=== PATIENT | female | born 2000 | race Two or more races ===

== ENCOUNTER 2025-01-31 10:51 | Outpatient (AMB) | payer MEDICAID, SELFPAY ==
[2025-01-31 11:03] VITALS: BP 107/69; PULSE 71; RESP 18; TEMP 36.2; O2SAT 98; BMI 24.5
--- NOTE | 2025-01-31 11:03 | AMB.GYNCLNOT ---
Vital Signs 01/31/25 11:03 Height 1.6 m Height Method Stated Weight 62.709 kg Weight Measurement Method Standing Scale BMI 24.5 BP 107/69 Blood Pressure Source Automatic Cuff Blood Pressure Location Left Upper Arm Position Sitting Respiration 18 Pulse 71 Pulse Source Monitor Temp 97.2 F Temp Source Oral Pulse Oximetry (%) 98 Oxygen Delivery Method Room Air Allergies/Home Meds Allergies & Medications Allergies No Known Allergies Allergy (Verified 01/31/25 11:04) Medication Reconciliation prenat.vits,melisa,[id number] 1 tab PO QDAY 08/31/21 [History Confirmed 01/31/25] calcium phosphate,dibasic 77 mg-vitamin D3 400 unit tablet 1 tab PO QDAY 11/24/21 [History Confirmed 01/31/25] ferrous sulfate 325 mg (65 mg iron) tablet (Iron (ferrous sulfate)) 325 mg PO QDAY 11/24/21 [History Confirmed 01/31/25] acetaminophen 500 mg capsule 1,000 mg (2 x 500 mg) PO TID #30 caps 08/30/22 [Rx Confirmed 01/31/25] Intake Visit Data Collection New Patient or Established: Established Patient (seen at [facility] within 3 years) Reason for Visit:: NEW PT ENDOMETOSIS Seen by Clinical Staff ONLY (RN/MA): No Wind Energy Mechanic Required: No Do You Feel Safe at Home: Yes Authorities Contacted: N/A PCP or OBGYN visit in last 3 months: Yes Hx Now: No Are you currently on any form of Control: No Last menstrual period: 01/18/25 Pain Present Currently: No Pain Scale Used: Holloway-Bell/Numerical Pain scale:: 0 Smoking Status Smoking Status: Never smoker Immunizations Flu Vaccine in the Last 12 Months: No Flu Vaccine Exclusion Criteria: No Exclusion Criteria 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 Menstrual regularity: regular Flow: normal Monthly: Yes Age at menarche: 12 Menopausal: No Currently sexually active: Yes 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 1. Little interest or pleasure in doing things: not at all 2. Feeling down, depressed, or hopeless: not at all Total score: 0 PHQ-9 3. Trouble falling or staying asleep, or sleeping too much: Not at all 4. Feeling tired or having little energy: Not at all 5. Poor appetite or overeating: Not at all 6. Feeling bad about yourself - or that you are a failure or have let yourself or your family down: Not at all 7. Trouble concentrating on things, such as reading the newspaper or watching television: Not at all 8. Moving or speaking so slowly that other people could have noticed? - Or the opposite - being so fidgety or restless that you have been moving around a lot more than usual: not at all 9. Thoughts that you would be better off or of hurting yourself in some way: Not at all Total score: 0 If you checked off any problems, how difficult have these problems made it for you to do your work, take care of things at home, or get along with other people?: not difficult at all Source: Developed by Drs. Feroz Burnette, Cari Randle, Talib Ibanez and colleagues, with an educational katherine from [employer]. Depression screen completed yes Social History Living Situation History Marital Status: Lives With: Family Housing: House Tobacco History Smoking Status: Never smoker Second Hand Smoke Exposure: No Alcohol History Alcohol Intake: Never Substance Use History Substance Use: thc prior to preg Domestic Abuse History Do You Feel Safe at Home: Yes History of Present Illness HPI Narrative Trying to conceive for 3 years, nausea and shakiness before periods for the last 6 months, concern about endometriosis recurrence Marcela Dubon presents for infertility evaluation after trying to conceive for approximately 3 years. She has a history of previous resulting in delivery and reports having healed well from the procedure. The patient currently uses a tracker cari to monitor her menstrual cycle but does not perform ovulation testing. She believes she ovulates based on cervical mucus changes but feels she is not fertile. Her cycles are sometimes irregular, and she experiences spotting every other month or a couple of months at a time, occurring around 2 weeks before her periods start, which happens after ovulation. Over the past 6 months, the patient has developed new symptoms including severe nausea leading up to her periods and episodes of feeling shaky. She has made dietary modifications, eliminating fast food and primarily eating home-cooked meals. The patient expresses concern about possible recurrence of endometriosis. Medical History: - Endometriosis Surgical History: - section, patient reports having healed well from the procedure Obstetric History: - GTPAL: G1 T1 L1 - Previous delivery via section with successful healing Social History: - Diet: Reports dietary changes including elimination of fast food and primarily consuming home-cooked meals Exam General General Appearance: alert, in no apparent distress and healthy appearing Head Head exam: atraumatic Neck Neck exam: Present normal inspection and trachea midline Chest Chest inspection: Present normal inspection and symmetric chest wall rise External exam: Present normal external exam; Absent tenderness Neuro Neurological exam: Present oriented X3 Psych Psychiatric exam: Present normal affect and normal mood Office Procedures [facility] Clinic LOC & Office Proc's Nursing/Assessment Patient Status: Established Patient OB Clinic Nursing Assessment: Medication Reconciliation, Update PMH in EMR and Vital Signs OB Clinic Coordination of Care: Consent,records obtained, informed consent, Education Simp Pt/Fam, Lab and Imaging orders, Results/Orders obtained and Staff clarify orders Established Patient Charge Established Patient Point Assignment: 80 Established Patient Point Charge: EP Level 3 (80-115) Assessment & Plan Diagnosis / Problem List (1) Abnormal uterine and vaginal bleeding, unspecified: Status: Acute Plan Infertility Assessment: Patient has been trying to conceive for 3 years following previous section. Currently uses tracking cari for ovulation prediction but has not validated ovulation with test kits. Reports normal ovulation spotting occurring 2 weeks before menstruation every other month. Since patient has had previous , issues like blocked tubes or cervical factors are less likely. Patient expressed concern about endometriosis recurrence, however endometriosis would not prevent . Baseline evaluation needed to assess general health and rule out cysts or fibroids, along with hormone level assessment. Plan: - Perform ovulation test kits using good brand like Clearblue for 5 consecutive days between 2-4 PM during next cycle to validate ovulation - If ovulation confirmed, time intercourse around ovulation period - If ovulation test negative, initiate Clomid to stimulate ovulation - Order baseline laboratory tests and hormone levels to be done during first two days of menstrual period - Order pelvic ultrasound (pending insurance authorization) to evaluate for cysts or fibroids - Follow-up appointment in 3 weeks for infertility evaluation - Clomid side effects discussed: ovarian stimulation, more pronounced ovulation symptoms, fluid retention, and bloating Premenstrual nausea and shakiness Assessment: New onset of severe nausea and shakiness occurring premenstrually over the past 6 months, consistent with premenstrual dysphoria symptoms. Plan: - control could help with nausea and premenstrual dysphoria but cannot be used while trying to conceive - Reassess symptoms at follow-up visit
== END 2025-01-31 11:10 | disposition home or self-care (01) ==
PROVIDERS: PCP Family Medicine; Referring Provider Family Medicine; Supervising Provider Obstetrics & Gynecology; Visit Provider Obstetrics & Gynecology
DX: N93.9 Abnormal uterine and vaginal bleeding, unspecified (principal); N97.9 Female infertility, unspecified
CPT/HCPCS: 99213; G0463

== ENCOUNTER → 2025-02-05 | Outpatient (CLI) | payer MEDICAID, SELFPAY ==
--- NOTE | 2025-02-05 16:44 | XR_ITS ---
Examination: Pelvic ultrasound, transabdominal, complete Technique: Transabdominal ultrasound of the pelvis performed using grayscale imaging Date and time of exam: February 05, 2025, 1652 hours INDICATIONS: Vaginal bleeding infertility 3 years FINDINGS: Uterus 8.3 cm retroverted Mild free fluid in the endometrium Endometrial stripe 13 mm Right ovary 3.2 cm arterial flow small follicles, the largest 8 mm Left ovary 3.3 cm arterial flow small follicles, the largest 13 mm Mild to moderate free fluid in the cul-de-sac IMPRESSION: No uterine mass or intrauterine gestation Mild to moderate free fluid in the cul-de-sac, clinical correlation advised
== END | disposition home or self-care (01) ==
PROVIDERS: PCP Family Medicine; Referring Provider Obstetrics & Gynecology; Visit Provider Obstetrics & Gynecology
DX: R19.00 Intra-abdominal and pelvic swelling, mass and lump, unspecified site (principal)
CPT/HCPCS: 76856

== ENCOUNTER 2025-02-20 11:11 | Outpatient (AMB) | payer MEDICAID, SELFPAY ==
[2025-02-20 11:24] VITALS: BP 104/61; PULSE 75; RESP 18; TEMP 36.2; O2SAT 98; BMI 24.6
--- NOTE | 2025-02-20 11:24 | AMB.GYNCLNOT ---
Vital Signs 02/20/25 11:24 Height 1.6 m Height Method Stated Weight 63.163 kg Weight Measurement Method Standing Scale BMI 24.6 BP 104/61 Blood Pressure Source Automatic Cuff Blood Pressure Location Left Upper Arm Position Sitting Respiration 18 Pulse 75 Pulse Source Monitor Temp 97.2 F Temp Source Oral Pulse Oximetry (%) 98 Oxygen Delivery Method Room Air Allergies/Home Meds Allergies & Medications Allergies No Known Allergies Allergy (Verified 02/20/25 11:28) Medication Reconciliation prenat.vits,melisa,[id number] 1 tab PO QDAY 08/31/21 [History Confirmed 02/20/25] calcium phosphate,dibasic 77 mg-vitamin D3 400 unit tablet 1 tab PO QDAY 11/24/21 [History Confirmed 02/20/25] ferrous sulfate 325 mg (65 mg iron) tablet (Iron (ferrous sulfate)) 325 mg PO QDAY 11/24/21 [History Confirmed 02/20/25] acetaminophen 500 mg capsule 1,000 mg (2 x 500 mg) PO TID #30 caps 08/30/22 [Rx Confirmed 02/20/25] Intake Visit Data Collection New Patient or Established: Established Patient (seen at [facility] 3 years) Reason for Visit:: Lab results Seen by Clinical Staff ONLY (RN/MA): No Electrician Helper Automotive Required: No Do You Feel Safe at Home: Yes Authorities Contacted: N/A PCP or OBGYN visit in last 3 months: Yes Date of Last PCP or OBGYN visit: 01/31/25 Hx Now: No Are you currently on any form of Control: No Last menstrual period: 02/15/25 Pain Present Currently: No Pain Scale Used: Holloway-Bell/Numerical Pain scale:: 0 Smoking Status Smoking Status: Never smoker Immunizations Flu Vaccine in the Last 12 Months: No Flu Vaccine Exclusion Criteria: Refused by Patient 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 Menstrual regularity: regular Flow: normal Monthly: Yes Age at menarche: 12 Currently sexually active: No 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 1. Little interest or pleasure in doing things: not at all 2. Feeling down, depressed, or hopeless: not at all Total score: 0 PHQ-9 3. Trouble falling or staying asleep, or sleeping too much: Not at all 4. Feeling tired or having little energy: Not at all 5. Poor appetite or overeating: Not at all 6. Feeling bad about yourself - or that you are a failure or have let yourself or your family down: Not at all 7. Trouble concentrating on things, such as reading the newspaper or watching television: Not at all 8. Moving or speaking so slowly that other people could have noticed? - Or the opposite - being so fidgety or restless that you have been moving around a lot more than usual: not at all 9. Thoughts that you would be better off or of hurting yourself in some way: Not at all Total score: 0 If you checked off any problems, how difficult have these problems made it for you to do your work, take care of things at home, or get along with other people?: not difficult at all Source: Developed by Drs. Feroz Burnette, Cari Randle, Talib Ibanez and colleagues, with an educational katherine from [employer]. Depression screen completed yes Social History Living Situation History Lives With: Family Housing: House Tobacco History Smoking Status: Never smoker Second Hand Smoke Exposure: No Alcohol History Alcohol Intake: Never Substance Use History Substance Use: thc prior to preg Domestic Abuse History Do You Feel Safe at Home: Yes History of Present Illness HPI Jonathan Dubon presents for follow-up from recent evaluation for infertility, premenstrual congestion syndrome, dysphoric disorder, history of endometriosis, and history of C-sections. The patient reports that she has been monitoring ovulation and had intercourse during ovulation but did not conceive. She mentions that her ovulation test was positive and that she timed intercourse correctly during this cycle. She has a history of C-sections. The patient is and lives with her . ROS: Negative except as stated above, limited to REGULATORY ATTORNEY and pertinent complaints. Diagnostic Test Results and Labs: - Pelvic ultrasound: Uterus 8.3 cm retroverted, mild free fluid in the endometrium, endometrial stripe 13 mm. Right ovary 3.2 cm with small follicles, largest 8 mm. Left ovary 3.3 cm with small follicles, largest 13 mm. Mild to moderate free fluid. - Hemoglobin: 13.2 g/dL - Comprehensive metabolic panel (CMP): Within normal limits - Hemoglobin A1c: 4.9% - LH: 6.1 - FSH day 3: 5.6 - Estradiol: 29 - Progesterone: 0.5 Exam General General Appearance: alert, in no apparent distress and healthy appearing Head Head exam: atraumatic Neck Neck exam: Present normal inspection and trachea midline Chest Chest inspection: Present normal inspection and symmetric chest wall rise External exam: Present normal external exam; Absent tenderness Neuro Neurological exam: Present oriented X3 Psych Psychiatric exam: Present normal affect and normal mood Office Procedures OBC Clinic LOC & Office Proc's Nursing/Assessment Patient Status: Established Patient OB Clinic Nursing Assessment: Medication Reconciliation, Update PMH in EMR and Vital Signs OB Clinic Coordination of Care: Consent,records obtained, informed consent, Education Simp Pt/Fam, Lab and Imaging orders, Results/Orders obtained and Staff clarify orders Special Needs: Heart tones Established Patient Charge Established Patient Point Assignment: 110 Established Patient Point Charge: EP Level 3 (80-115) Assessment & Plan Diagnosis / Problem List (1) Abnormal uterine and vaginal bleeding, unspecified: Status: Acute Plan Infertility: - Recent evaluation reveals normal reproductive parameters with normal uterine size at 8.3 cm retroverted and bilateral ovaries with follicular development. - Laboratory studies show normal hemoglobin 13.2, excellent glycemic control with A1c 4.9, and normal reproductive hormones including LH 6.1, FSH 5.6, estradiol 29, and progesterone 0.5. - Patient reports positive ovulation testing with appropriately timed intercourse but no conception. - Male factor evaluation pending. Plan: - Continue monitoring ovulation. - Take vitamin. - requires testing including sperm count and diabetic panel. - If sperm count abnormal, should see urologist. - should be checked for kidney stones as they can affect prostate gland and sperm production. Premenstrual Congestion Syndrome: - History of premenstrual congestion syndrome with current normal reproductive hormone levels and ovarian function. Plan: Dysphoric Disorder: - History of dysphoric disorder with current normal laboratory parameters. Plan: History of Endometriosis: - History of endometriosis with current imaging showing normal uterine and ovarian anatomy without evidence of active disease. Plan: History of C-sections: - History of sections with current normal pelvic anatomy on ultrasound. Plan:
== END 2025-02-20 11:56 | disposition home or self-care (01) ==
PROVIDERS: Supervising Provider Obstetrics & Gynecology; Visit Provider Obstetrics & Gynecology
DX: N93.9 Abnormal uterine and vaginal bleeding, unspecified (principal); N97.9 Female infertility, unspecified; Z87.42 Personal history of other diseases of the female genital tract
CPT/HCPCS: 99213; G0463